=== PATIENT | female | born 1990 | race Hispanic/Latino ===

== ENCOUNTER 2019-09-02 22:07 | Emergency (ER) | payer SELFPAY ==
[2019-09-02 22:46] LABS: APPEARANCE,URINE Cloudy (CLEAR); BILIRUBIN,URINE Negative (NEGATIVE); COLOR,URINE Yellow (YELLOW); GLUCOSE, URINE (UA) Negative (NEGATIVE); KETONES,URINE Negative (NEGATIVE); LEUKOCYTE ESTERASE ,URINE Moderate (NEGATIVE); NITRATE,URINE Negative (NEGATIVE); OCCULT BLOOD,URINE Negative (NEGATIVE); PROTEIN,URINE Trace mg/dL (NEGATIVE)
[2019-09-02 22:51] LABS: HCG,QUAL RESULT NEGATIVE (NEGATIVE)
[2019-09-02 23:09] LABS: RBC,URINE 0-1 /HPF (0-1)
[2019-09-02 23:10] LABS: BACTERIA,URINE Few /HPF (None Seen); MUCUS,URINE Few LPF (None Seen)
== END 2019-09-02 23:28 | disposition home or self-care (01) ==
LOC: EDH 22:07
DX: R10.13 Epigastric pain (principal)
CPT/HCPCS: 81001; 81025

== ENCOUNTER 2022-07-24 14:13 | Emergency (ER) | payer OTHER ==
[~2022-07-24] VITALS: Ht 157.5 cm; Wt 72.6 kg
[2022-07-24 14:27] VITALS: BP 138/85
[2022-07-24] MEDS ORDERED: DOCU-116 PO (14:41)
[2022-07-24] MEDS ORDERED: POLY17PO4 PO (14:41)
[2022-07-24] MEDS ORDERED: HYDR30CR79 RC (14:41)
== END 2022-07-24 15:03 | disposition home or self-care (01) ==
LOC: EDH 14:13
DX: K59.00 Constipation, unspecified (principal); K64.4 Residual hemorrhoidal skin tags